=== PATIENT | female | born 1960 | race Caucasian/White ===

== ENCOUNTER 2017-03-22 10:34 | Emergency (ER) | payer MEDICARE, MEDICAID ==
[~2017-03-22] VITALS: Ht 170.2 cm; Wt 90.7 kg
--- NOTE | 2017-03-22 11:57 | ED.ADGEN ---
Past Medical History Past Medical History: Fibromyalgia, IBS, Pneumonia Additional Past Medical Histor: shingles, lupus, herna, MS Past Surgical History: Hip Replacement Alcohol Use: None Drug Use: None Adult General Chief Complaint Chief Complaint: cough HPI HPI Patient is a 56 year old female who presents with cough, shortness of breath. Patient states she's had symptoms for nearly 2 weeks. She's had thick yellow sputum, runny nose, no reported fevers. It does make her short of breath. He denies associated pain, feels tired. She intermittently smokes, no history of asthma or COPD. She reports pneumonia about 6 months ago. [place]. Review of Systems Review of Systems Constitutional: Denies fever or chills. [] Eyes: Denies change in visual acuity. [] HENT: Per history of present illness Respiratory: Per history of present illness Cardiovascular: Denies chest pain or edema. [] GI: Denies abdominal pain, nausea, vomiting, bloody stools or diarrhea. [] : Denies dysuria. [] Musculoskeletal: Denies back pain or joint pain. [] Integument: Denies rash. [] Neurologic: Denies headache, focal weakness or sensory changes. [] Allergies Allergies Allergies Coded Allergies Type Severity Reaction Last Updated Verified morphine Allergy Intermediate 03/22/17 Yes Physical Exam Physical Exam Constitutional: Well developed, well nourished, no acute distress, non-toxic appearance. Sinus congested voice HENT: Normocephalic, atraumatic, bilateral external ears normal, oropharynx moist, no oral exudates, nose normal. [] Eyes: PERRLA, EOMI, conjunctiva normal, no discharge. [] Neck: Normal range of motion, no tenderness, supple, no stridor. [] Cardiovascular:Heart rate regular with regular rhythm, no murmur [] Lungs & Thorax: Bilateral breath sounds clear to auscultation him a intermittent wheeze Abdomen: soft, no tenderness, no masses, no pulsatile masses. [] Skin: Warm, dry, no erythema, no rash. [] Back: No tenderness, no CVA tenderness. [] Extremities: No tenderness, no cyanosis, no clubbing, ROM intact, no edema. [] Neurologic: Alert and oriented X 3, normal motor function, normal sensory function, no focal deficits noted. [] Psychologic: Affect normal, judgement normal, mood normal. [] Current Patient Data Vital Signs Vital Signs Date Time Temp Pulse Resp B/P Pulse Ox O2 Delivery O2 Flow Rate FiO2 03/22/17 12:51 77 108/66 92 Room Air 03/22/17 11:29 97.9 20 97.9 EKG EKG [] Radiology/Procedures Radiology/Procedures Exam: PA and lateral chest radiograph History: Cough, shortness of breath for 2 weeks. Comparison: None. Findings: Cardiomediastinal silhouette is within normal limits for size. Bilateral lung thomas are free of focal infiltrate. No pleural effusion is seen. Impression: No acute cardiopulmonary process. [] Course & Med Decision Making Course & Med Decision Making Pertinent Labs and Imaging studies reviewed. (See chart for details) Patient had symptoms for greater than 10 days, we'll treat with Augmentin for likely sinusitis causing the cough. Also give prescription for Diflucan as patient does get yeast infections on antibiotics. Follow-up with primary care physician. Diagnosis: Sinusitis with upper respiratory infection Dragon Disclaimer Dragon Disclaimer This electronic medical record was generated, in whole or in part, using a voice recognition dictation system. SILVESTRE BHANDARI MD Mar 22, 2017 11:57
--- NOTE | 2017-03-22 12:25 | RAD ---
Exam: PA and lateral chest radiograph History: Cough, shortness of breath for 2 weeks. Comparison: None. Findings: Cardiomediastinal silhouette is within normal limits for size. Bilateral lung thomas are free of focal infiltrate. No pleural effusion is seen. Impression: No acute cardiopulmonary process.
[2017-03-22] MEDS ORDERED: FLUC150T PO (12:46)
[2017-03-22] MEDS ORDERED: AMOX1TAB61 PO (12:46)
[2017-03-22 12:51] VITALS: BP 108/66
== END 2017-03-22 13:04 | disposition home or self-care (01) ==
LOC: ER 10:34
DX: J32.9 Chronic sinusitis, unspecified (principal); J06.9 Acute upper respiratory infection, unspecified; M79.7 Fibromyalgia; K58.9 Irritable bowel syndrome, unspecified; M32.9 Systemic lupus erythematosus, unspecified; G35 Multiple sclerosis; Z87.01 Personal history of pneumonia (recurrent); Z88.5 Allergy status to narcotic agent
CPT/HCPCS: 71020; 99284-25